=== PATIENT | male | born 1985 | race Caucasian/White ===

== ENCOUNTER 2016-05-29 08:10 | Emergency (ER) | payer OTHER ==
[2016-05-29 08:14] VITALS: RESP 16; TEMP 97.5
[2016-05-29] MEDS ORDERED: HYDROmorphONE/DILAUDID 1 MG/ML SYR IVP ONE (09:03)
[2016-05-29] MEDS ORDERED: KETOROLAC 15 MG/1 ML SDV IVP ONE (09:03)
[2016-05-29] MEDS ORDERED: DIAZEPAM 10 MG/2 ML SYR IVP ONE (09:03)
[2016-05-29] MEDS ORDERED: NS 1,000 ML IV ONE (09:03)
[2016-05-29] MEDS ORDERED: DEXAMETHASONE 10 MG/ML VIAL IVP ONE (09:06)
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
[2016-05-29 10:32] VITALS: BP 157/89; PULSE 50; O2SAT 97
== END 2016-05-29 10:32 | disposition home or self-care (01) ==
DX: M54.42 Lumbago with sciatica, left side (principal)
CPT/HCPCS: 96374; J1170; J1885

== ENCOUNTER 2018-02-18 17:25 | Inpatient (IN) | payer OTHER ==
--- NOTE | 2018-02-18 17:57 | EDPHY ---
HPI/HX/ROS/PE/MDM Narrative: CHIEF COMPLAINT: Infection in gluteal cleft HISTORY OF PRESENT ILLNESS: This patient is a 32 year old male complaining of a skin infection in his left gluteal cleft. He first noted a small bump in the area 1-2 months ago, but this has worsened in the past week. He went to urgent care this morning and was given cefazolin IM and oral Bactrim. He reports a provider there tried to do a needle aspiration for I&D, but there was no purulence expressed. He was instructed to come to ER if he was not better and now he feels he had gotten worse. He reports he became ill last night with chills, body aches, fever, headache. No history of diabetes, not immunocompromised, no recent steroid use. Patient did have a epidural injection performed 1 week ago without complications. No flu vaccine yet this year. No chest pain, shortness of breath, palpitations, vomiting, diarrhea, urinary complaints, lightheadedness. REVIEW OF SYSTEMS: A comprehensive 10 system review of systems is otherwise negative aside from elements mentioned in the history of present illness and medical decision making. PAST MEDICAL HISTORY: Transforaminal epidural injection at L4-L5 one week ago SOCIAL HISTORY: , at bedside. Nonsmoker. No illicit drug use, has never used IV drugs. VITAL SIGNS: Reviewed by me. Afebrile here. GENERAL: Well-developed, well-nourished, resting comfortably in no respiratory distress. HEENT: Atraumatic. Eyes: No icterus, no injection. Mouth: moist mucous membranes. No erythema or lesions. Neck: supple with no adenopathy. LUNGS: Clear to auscultation bilaterally, no wheezes, rhonchi or rales. CARDIAC: Regular rate and rhythm, no rubs, murmurs or gallops. ABDOMEN: Soft, nontender, nondistended, bowel sounds normal. BACK: No CVA tenderness. EXTREMITIES: No trauma. No edema. See skin exam. NEURO: Alert and oriented, grossly nonfocal. SKIN: Warm and dry. Left lower extremity: At the gluteal fold, the patient has a 6cm x 10cm firm, indurated area with a 20cm area of surrounding erythema extending down the posterior thigh. PSYCHIATRIC: Normal mentation, no agitation. Portions of this note were transcribed by a bilingual medical receptionist. I personally performed a history, physical exam, medical decision making, and confirmed accuracy of information the transcribed note. ED Course: 32 y/o male presents with cellulitis and abscess in the left gluteal fold. On exam, the patient has a 6cm x 10cm firm, indurated area at the gluteal fold with a 20cm area of surrounding erythema extending down the posterior thigh, warm to the touch. He endorses spreading erythema despite beginning oral antibiotics this morning. Plan to administer 1mg IV Dilaudid for pain relief. Plan for labs including CBC, chemistries, coag panel, bilirubin, lactic acid, blood cultures. 18:30 Procedure: Incision and Drainage abscess. The patient's abscess was located on the left buttock. Risks, benefits, alternatives discussed with the patient and consent obtained. The area was prepped and draped in sterile fashion. The patient received local anesthesia with 1% lidocaine with epinephrine. The abscess was incised with a #15 blade and a large quantity of purulent drainage was expressed. The wound was packed. The patient tolerated the procedure well. The procedure was performed by myself. Wound culture sent to the laboratory for evaluation. WBC elevated at 11,600. Lactic acid negative. Plan to admit patient for cellulitis, abscess, fever. Sepsis Evaluation Note: The patient presents to the ED with potential infection identified as abscess and cellulitis. The patient did not have evidence of sepsis. In the emergency department he had no fever, tachycardia, tachypnea, and his white blood cell count was less than 12,000. 19:09 Consulted with hospitalist service. Dr. Lopez accepts admission for cellulitis, abscess, fever. He will consult General surgery to evaluate if further I and D or operative intervention is necessary. MDM: Differential diagnoses for the patient's symptom complex was considered including but not limited to cellulitis, abscess, deep space abscess, perirectal abscess, MRSA, MSSA. - Data Points Laboratory Results: Laboratory Results 02/19/18 04:30 02/18/18 18:05 Medications Given: Discontinued Medications Hydromorphone HCl (Dilaudid) 1 mg IVP EDNOW ONE Stop: 02/18/18 18:28 Last Admin: 02/18/18 18:35 Dose: 1 mg Hydromorphone HCl (Dilaudid) 0.2 - 1 mg IVP Q4H PRN PRN Reason: breakthrough/pre-med for wound Stop: 02/28/18 21:22 Last Admin: 02/20/18 20:54 Dose: 0.5 mg Vancomycin/Sodium Chloride (Vancomycin 1 Gm (Premix)) 250 mls @ 250 mls/hr IV EDNOW ONE PRN Reason: Protocol Stop: 02/18/18 19:01 Last Admin: 02/18/18 18:34 Dose: 250 mls Sodium Chloride (Ns) 1,000 mls @ 0 mls/hr IV ONCE ONE; Wide Open PRN Reason: Protocol Stop: 02/18/18 18:27 Last Admin: 02/18/18 18:34 Dose: 1,000 mls Vancomycin HCl 1.25 gm/ Sodium (Chloride) 250 mls @ 166.667 mls/hr IV Q12H EVELYN Stop: 03/21/18 06:29 Last Admin: 02/20/18 08:12 Dose: 250 mls Cefazolin Sodium/Dextrose (Ancef 2 Gm) 100 mls @ 200 mls/hr IV Q8HRS EVELYN PRN Reason: Protocol Stop: 03/22/18 13:59 Last Admin: 02/21/18 13:03 Dose: 100 mls Oxycodone HCl (Oxycodone Ir) 5 - 10 mg PO Q3HRS PRN PRN Reason: Pain, Severe Able to Take PO Stop: 02/28/18 19:36 Last Admin: 02/21/18 10:49 Dose: 5 mg Senna/Docusate Sodium (Senokot-S) 1 - 2 tab PO BID EVELYN PRN Reason: Protocol Stop: 08/19/18 08:59 Last Admin: 02/21/18 07:53 Dose: 1 tab General Time Seen by Provider: 02/18/18 17:43 Initial Vital Signs: Initial Vital Signs Temperature (C) 37.1 C 02/18/18 17:37 Heart Rate 89 02/18/18 17:37 Respiratory Rate 16 02/18/18 17:37 Blood Pressure 110/78 02/18/18 17:37 O2 Sat (%) 96 02/18/18 17:37 O2 Delivery Mode Room Air Allergies/Adverse Reactions: No Known Allergies Allergy (Verified 10/03/13 22:51) Home Medications: Medication Instructions Recorded Ibuprofen [Advil] 600 mg PO BID PRN 02/18/18 Cephalexin [Keflex (*)] 500 mg PO QID #56 cap 02/21/18 oxyCODONE/APAP 5/325 [Percocet 1 - 2 tab PO Q8 PRN #20 tab 02/21/18 5/325 (*)] Departure - Departure Disposition: [facility] ([place], [place]) Inpatient Acute Clinical Impression: Left buttock abscess Cellulitis Qualifiers: Site of cellulitis: buttock Qualified Code(s): L03.317 - Cellulitis of buttock Fever Qualifiers: Fever type: unspecified Qualified Code(s): R50.9 - Fever, unspecified Condition: Fair Report Scribed for: Libertad Hennessy Report Scribed by: Meera Pardo Date of Report: 02/18/18 Time of Report: 20:05
[2018-02-18] MEDS ORDERED: VANCOMYCIN HCL/NORMAL SALINE 250 ML IV ONE (18:02)
[2018-02-18] MEDS ORDERED: HYDROmorphONE/DILAUDID 1 MG/ML INJ ONE (18:22)
[2018-02-18] MEDS ORDERED: NS 1,000 ML IV ONE (18:26)
[2018-02-18] MEDS ORDERED: HYDROmorphONE/DILAUDID 1 MG/ML INJ IVP ONE (18:27)
[2018-02-18 18:35] LABS: PLATELET COUNT 190 10^3/uL (150-400)
[2018-02-18 18:43] LABS: INR 1.07 (0.83-1.16); PROTIME(PATIENT) 14.1 SEC (12.0-15.0)
[2018-02-18] MEDS ORDERED: ONDANSETRON 4 MG/2 ML VIAL IVP PRN (19:37)
[2018-02-18] MEDS ORDERED: ACETAMINOPHEN 325 MG TAB PO PRN (19:37)
[2018-02-18] MEDS ORDERED: ONDANSETRON DISINTEGRATING 4 MG TAB PO PRN (19:37)
--- NOTE | 2018-02-18 21:14 | PDGENHP ---
History and Physical - Chief Complaint buttock/leg pain and redness - History of Present Illness 32yo generally healthy M presents with worsening pain on posterior aspect of upper left thigh. He has noticed a firmness over this area for numerous months but it never bothered him or became red. He noticed the area becoming more painful about 1.5 weeks ago and it has continued to progressively become more uncomfortable. He also noticed more redness. Last night, he developed a fever and chills so he decided to go to urgent care this AM. They attempted I&D but were unable to drain any fluid. He received a dose of cefazolin and was sent home with bactrim. The pain worsened and he noted the redness was spreading down the back of his thigh so came to ED. He reports have an epidural spinal injection at L4-5 1 week ago. He also does have a history of left hamstring repair in 2013. He denies any urinary or GI symptoms. In the ED, he underwent I&D with drainage of significant purulent material. The wound was packed. He is being admitted for IV antibiotics for cellulitis and abscess. Case discussed with ED physician Libertad Hennessy. History Information - Allergies/Home Medication List Allergies/Adverse Reactions: No Known Allergies Allergy (Verified 10/03/13 22:51) Home Medications: Ibuprofen [Advil] 600 mg PO BID PRN 02/18/18 [Last Taken 02/17/18] Sulfamethox/Tmp 800/160 mg [Bactrim Ds] 1 tab PO BID 02/18/18 [Last Taken 14:00] I have personally reviewed and updated: family history, medical history, social history, surgical history - Past Medical History Additional medical history: low back pain/degenerative disc disease, left hamstring injury - Surgical History Additional surgical history: microdiscectomy x2, epidural spinal injection, left hamstring repair - Family History Positive for: non-pertinent - Social History Smoking Status: Never smoked Alcohol Use: Rarely (socially) Drug Use: None Additional social history: Lives with . Works at [employer] in [employer] department Review of Systems Review of Systems: ROS: 10pt was reviewed & negative except for what was stated in HPI & below Physical Exam Physical Exam: Temp Pulse Resp BP Pulse Ox 37.1 C 68 16 134/80 H 93 02/18/18 20:44 02/18/18 20:44 02/18/18 20:44 02/18/18 20:44 02/18/18 20:44 Constitutional: no apparent distress, appears nourished, not in pain Eyes: PERRL, anicteric sclera, EOMI Ears, Nose, Mouth, Throat: moist mucous membranes, hearing normal, ears appear normal, no oral mucosal ulcers Cardiovascular: regular rate and rhythym, no murmur, rub, or gallop, No edema Respiratory: no respiratory distress, no rales or rhonchi, clear to auscultation Gastrointestinal: normoactive bowel sounds, soft, non-tender abdomen, no palpable masses Skin: erythema (on posterior left thigh extending from buttock down almost to knee), induration (upper posterior left thigh with area that is now packed), other (no scrotal erythema) Musculoskeletal: full muscle strength, no muscle tenderness, normal joint ROM, no joint effusions Neurologic: AAOx3 Psychiatric: interacting appropriately, not anxious, not encephalopathic, thought process linear Lab Data & Imaging Review 02/18/18 18:05 02/18/18 18:05 WBC 11.60 10^3/uL (3.80-9.50) H 02/18/18 18:05 RBC 4.66 10^6/uL (4.40-6.38) 02/18/18 18:05 Hgb 14.6 g/dL (13.7-17.5) 02/18/18 18:05 Hct 41.9 % (40.0-51.0) 02/18/18 18:05 MCV 89.9 fL (81.5-99.8) 02/18/18 18:05 MCH 31.3 pg (27.9-34.1) 02/18/18 18:05 MCHC 34.8 g/dL (32.4-36.7) 02/18/18 18:05 RDW 12.7 % (11.5-15.2) 02/18/18 18:05 Plt Count 190 10^3/uL (150-400) 02/18/18 18:05 MPV 11.3 fL (8.7-11.7) 02/18/18 18:05 Neut % (Auto) 73.1 % (39.3-74.2) 02/18/18 18:05 Lymph % (Auto) 16.3 % (15.0-45.0) 02/18/18 18:05 Faulkner % (Auto) 9.1 % (4.5-13.0) 02/18/18 18:05 Eos % (Auto) 0.9 % (0.6-7.6) 02/18/18 18:05 Baso % (Auto) 0.2 % (0.3-1.7) L 02/18/18 18:05 Nucleat RBC Rel Count 0.0 % (0.0-0.2) 02/18/18 18:05 Absolute Neuts (auto) 8.48 10^3/uL (1.70-6.50) H 02/18/18 18:05 Absolute Lymphs (auto) 1.89 10^3/uL (1.00-3.00) 02/18/18 18:05 Absolute Monos (auto) 1.06 10^3/uL (0.30-0.80) H 02/18/18 18:05 Absolute Eos (auto) 0.10 10^3/uL (0.03-0.40) 02/18/18 18:05 Absolute Basos (auto) 0.02 10^3/uL (0.02-0.10) 02/18/18 18:05 Absolute Nucleated RBC 0.00 10^3/uL (0-0.01) 02/18/18 18:05 Immature Gran % 0.4 % (0.0-1.1) 02/18/18 18:05 Immature Gran # 0.05 10^3/uL (0.00-0.10) 02/18/18 18:05 PT 14.1 SEC (12.0-15.0) 02/18/18 18:05 INR 1.07 (0.83-1.16) 02/18/18 18:05 APTT 29.8 SEC (23.0-38.0) 02/18/18 18:05 VBG Lactic Acid 1.0 mmol/L (0.7-2.1) 02/18/18 18:25 Sodium 138 mEq/L (135-145) 02/18/18 18:05 Potassium 4.1 mEq/L (3.3-5.0) 02/18/18 18:05 Chloride 100 mEq/L (97-110) 02/18/18 18:05 Carbon Dioxide 29 mEq/l (22-31) 02/18/18 18:05 Anion Gap 9 mEq/L (8-16) 02/18/18 18:05 BUN 18 mg/dL (7-23) 02/18/18 18:05 Creatinine 0.9 mg/dL (0.7-1.3) 02/18/18 18:05 Estimated GFR > 60 02/18/18 18:05 Glucose 95 mg/dL (70-100) 02/18/18 18:05 Calcium 9.2 mg/dL (8.5-10.4) 02/18/18 18:05 Total Bilirubin 0.9 mg/dL (0.1-1.4) 02/18/18 18:05 Assessment & Plan Assessment: 32yo generally healthy M presents with worsening pain and erythema on posterior aspect of upper left thigh found to have abscess and cellulitis. Plan: #Left posterior thigh abscess and cellulitis: S/p I&D in ED. Wound now packed. Suspect folliculitis or epidermoid cyst that has become infected and spread to surrounding skin/soft tissue. He is not septic. Will cover for MRSA. His clinical picture is not consistent with Adam's gangrene. Seems unlikely that recent epidural injection was portal of entry. - Vancomycin, trough goal 10-15 - Consult general surgery in AM - Wound care - Pain control Diet: regular VTE ppx: Code: full Dispo: Admit under observation for management of above with IV antibiotics.
[2018-02-18] MEDS ORDERED: HYDROmorphONE/DILAUDID 1 MG/ML INJ IVP PRN (21:23)
[2018-02-18] MEDS: oxyCODONE IR 5 MG TAB PO PRN (21:26)
[2018-02-19] MEDS: VANCOMYCIN 1.25 GM in NS 250 ML IV SCH ×2 (06:14→18:24)
[2018-02-19] MEDS: oxyCODONE IR 5 MG TAB PO PRN ×4 (06:18→21:55)
--- NOTE | 2018-02-19 10:44 | WOCRNPDOC ---
WOCRN Advanced Assessment Note - Skin Integrity Problem, Advanced Assess Right Gluteal Folds Surgical Wound/Incision Dressing Type: Packing, Tegaderm Film Exudate Amount: Moderate Exudate Characteristic(s): Serosanguinous Integumentary Issue Intervention: Dressing Changed, Dressing Initialed & Dated Gal Wound Tissue: Erythema (Has receeded from previously marked area but still erythematic to approx 8 cm gal wound), Indurated, Painful/Tender Site Measurement - Head-to-Toe Length X Width X Depth (cm): 0.1x2.4x3 Skin Integrity Problem Comment: I and D site. No purulence/tunneling noted. Painful to change; continue with premedication prior to dressing changes. Will need changes BID for a few days and then might be able to switch to daily changes. Wound care will follow up later this week. All questions answered. present for change. Small area of approx 2x2 cm erythema on left lumbar area marked and dated.
--- NOTE | 2018-02-19 10:44 | HOSPPROG ---
Hospitalist Progress Note Assessment/Plan: 32 yo m w recent chandrakant here w buttock abscess abscess: lance puga on vanc has been drained but still w sig erythema gen surgery to see hold ct for now await micro satellite lesion: not really tender, may just be from lying on bed marked, follow recent chandrakant: no neurologic sx proph: low risk, ambulation dispo: inpatient await micro, response to treatment Subjective: case d/w dr davies Objective: Vital Signs Temp Pulse Resp BP Pulse Ox 36.7 C 55 L 16 120/66 99 02/19/18 07:41 02/19/18 07:41 02/19/18 07:41 02/19/18 07:41 02/19/18 07:41 Laboratory Results 02/19/18 04:30 02/18/18 02/19/18 02/20/18 05:59 05:59 05:59 Intake Total 1870 Balance 1870 PT 14.1 SEC (12.0-15.0) 02/18/18 18:05 INR 1.07 (0.83-1.16) 02/18/18 18:05 - Physical Exam Constitutional: no apparent distress, appears nourished Eyes: PERRL, anicteric sclera Ears, Nose, Mouth, Throat: moist mucous membranes, hearing normal Cardiovascular: regular rate and rhythym, no murmur, rub, or gallop Respiratory: no respiratory distress, no rales or rhonchi Gastrointestinal: normoactive bowel sounds, soft, non-tender abdomen Genitourinary: no bladder fullness, No banks in urethra Skin: warm, normal color Musculoskeletal: other (L upper thigh w erythema and warmth and tenderness around incision site. wick in place. no fluctuance. small area redness around R SI joint. marked) ICD10 Worksheet Patient Problems: Problems Problem Status Onset Cellulitis Acute Fever Acute Left buttock abscess Acute
--- NOTE | 2018-02-19 11:46 | GCON ---
Consultation requested by Dr. Anurag Norton Marcio has had a fullness in his left posterior proximal midline thigh for some time. It has become more tender over the last 36 hours. He went to Urgent Care yesterday morning. He was started on Bactrim. He came to the ER last night. The cellulitis had increased. The wound was I&D'd and packed. It was repacked this morning. I was there just as the dressing changes were completed. The erythema is dramatically less than it was last evening. The Gram stain from last night shows gram-positive cocci in clusters. The patient is on vancomycin. I think he is doing well. His white count is unchanged at this point, but he is afebrile. His vital signs are stable. I recommend we use a heating pad on it for 45 minutes 4 times a day and isolation until we are sure that we are not dealing with MRSA. I think the current care plan is excellent. /[id number]/MODL MTDD
--- NOTE | 2018-02-19 12:52 | ASMTCASEMG ---
Living Arrangements What is your living Answers: With Spouse arrangement? Who do you live with? Type Of Residence What kind of residence do Answers: Apartment you live in? Discharge Plan Comments Coordination Status Comments Notes: Patient is a 32yo male who has been generally healthy but presents to [facility] ED with a buttock abscess, cellulitis, and fever. In the ED patient underwent I&D with drainage of significant purulent material. The wound was packed and he is being admitted for IV ABX. Patient will need a consult with general surgery, wound care, pain control and vancomycin, trough goal 10-15.PT has been ordered for the patient.D/C needs TBD. CM will follow. Date Signed: 02/19/2018 12:51 PM Electronically Signed By:Tanna Sood LCSW
--- NOTE | 2018-02-19 15:35 | PDMN ---
Medical Necessity Medical necessity: Change to inpt as of 02/19/18 @ 1450. Pt meets inpt criteria per MD order and MCG M-70, Cellulitis, 32 y/o admitted w/L posterior thigh abcess and cellulitis, s/p I&D in ER and wound packing, still w/significant erythema, surgery following, continue IV ABX's, wound cultures + for Staph Aureus, blood cultures pending. Anticipate>2MN for ongoing med nec eval/ treatment.
[2018-02-19] MEDS: HYDROmorphONE/DILAUDID 1 MG/ML INJ IVP PRN (21:04)
[2018-02-19] MEDS ORDERED: MAGNESIUM HYDROXIDE 30 ML UDCUP PO PRN (22:53)
[2018-02-19] MEDS ORDERED: BISACODYL 10 MG SUPP PR PRN (22:53)
[2018-02-19] MEDS ORDERED: LACTULOSE 20 GM/30 ML UDCUP PO PRN (22:53)
[2018-02-19] MEDS ORDERED: POLYETHYLENE GLYCOL 3350 17 GM PKT PO PRN (22:53)
[2018-02-20] MEDS: SENNOSIDES/DOCUSATE SODIUM TAB PO SCH ×2 (07:49→21:07)
[2018-02-20] MEDS: VANCOMYCIN 1.25 GM in NS 250 ML IV SCH (08:12)
[2018-02-20] MEDS: HYDROmorphONE/DILAUDID 1 MG/ML INJ IVP PRN ×2 (10:40→20:54)
--- NOTE | 2018-02-20 13:10 | HOSPPROG ---
Hospitalist Progress Note Assessment/Plan: # cellulitis/abscess s/p I&D, MSSA - still too high risk for PO abx - change to ancef IV Subjective: leg still painful Objective: Vital Signs Temp Pulse Resp BP Pulse Ox 36.4 C 55 L 16 123/72 H 94 02/20/18 07:21 02/20/18 07:21 02/20/18 07:21 02/20/18 07:21 02/20/18 07:21 Laboratory Results 02/20/18 10:08 02/19/18 02/20/18 02/21/18 05:59 05:59 05:59 Intake Total 1530 Balance 1530 PT 14.1 SEC (12.0-15.0) 02/18/18 18:05 INR 1.07 (0.83-1.16) 02/18/18 18:05 chart reviewed - Physical Exam Constitutional: no apparent distress, appears nourished Cardiovascular: regular rate and rhythym, no murmur, rub, or gallop, systolic murmur Respiratory: no respiratory distress, no rales or rhonchi, clear to auscultation Gastrointestinal: normoactive bowel sounds, soft, non-tender abdomen, no palpable masses Skin: other (L thigh with abscess s/p I&D; some surrounding erythema) ICD10 Worksheet Patient Problems: Problems Problem Status Onset Cellulitis Acute Left buttock abscess Acute Fever Acute
[2018-02-20] MEDS: ceFAZolin 2 GM/DEXTROSE 100 ML IV SCH ×2 (14:30→21:08)
--- NOTE | 2018-02-20 15:02 | SOAPPROG ---
SOAP Progress Note Assessment/Plan: Assessment/Plan: 32 yo with 4 month hx or posterior thigh mass/cyst. Cellulitis and signs of acute infection last 48 hrs. Initial assessment in urgent care with Bactrim Rx. Worsening cellulitis prompted ER visit and admit. Vanco started with I&D at bedside. MSSA on speciation Changed to Ancef WBC 11 yesterday (stable) AVSS Cellulitis improved Induration as expected Packing removed some (purulence) Agree with management Wash wound in shower Repack with iodoform today D/C on oral abx 24-48 hr if cellulitis continues to improve 02/20/18 14:58 Objective: Vital Signs Temp Pulse Resp BP Pulse Ox 36.4 C 55 L 16 123/72 H 94 02/20/18 07:21 02/20/18 07:21 02/20/18 07:21 02/20/18 07:21 02/20/18 07:21 Laboratory Results 02/20/18 10:08 02/19/18 02/20/18 02/21/18 05:59 05:59 05:59 Intake Total 1530 Balance 1530 PT 14.1 SEC (12.0-15.0) 02/18/18 18:05 INR 1.07 (0.83-1.16) 02/18/18 18:05 ICD10 Worksheet Patient Problems: Problems Problem Status Onset Cellulitis Acute Fever Acute Left buttock abscess Acute
[2018-02-20] MEDS ORDERED: VANCOMYCIN 1.5 GM in NS 250 ML IV SCH (18:30)
[2018-02-20] MEDS ORDERED: HYDROmorphONE/DILAUDID 2 MG/ML INJ IVP PRN (22:00)
[2018-02-21] MEDS: ceFAZolin 2 GM/DEXTROSE 100 ML IV SCH ×2 (05:34→13:03)
[2018-02-21] MEDS: SENNOSIDES/DOCUSATE SODIUM TAB PO SCH (07:53)
[2018-02-21 07:58] VITALS: BP 123/73
[2018-02-21] MEDS: oxyCODONE IR 5 MG TAB PO PRN (10:49)
--- NOTE | 2018-02-21 11:08 | GDS ---
ALL CONSULTATIONS: General Surgery, Dr. Pierson. ALL DIAGNOSES: Cellulitis and abscess status post incision and drainage growing methicillin-sensitiv e Staphylococcus aureus. HOSPITAL COURSE: A 32-year-old man who presented with significant left posterior leg pain. He had b een treated with Bactrim as an outpatient. Found to have an abscess as well as surrounding celluliti s. This was I and D'd in the emergency department. Cultures were growing MSSA. Initially treated w ith vancomycin transitioned to Ancef. He has had significant improvement in his erythema as well as pain. He has been seen by [facility] as well as Kenna with General Surgery who do not feel like additional I and D is necessary at this time. He is stable for discharge on oral antibiotics. Dr. Yesica ontiveros has offered to follow up with him in a week or 2 as an outpatient to assure good healing. I w ill transition him to Keflex; he has been given warning signs and side effects of antibiotics. His w marcelo plans to do his packing once a day for the meantime. BILLING: I spent more than 30 minutes on the day of discharge coordinating care. /[id number]/MODL
--- NOTE | 2018-02-21 12:40 | ASMTCMCOM ---
CM Note CM Note Notes: Pt is being discharged today. CM spoke to Dr. Whittington and SUSAN Lawrence regarding d/c POC. Meera from wound care filled out the prescription for wound care supplies and Dr. Whittington signed the orders. CM met w/ pt and he also signed the prescription. No other needs at this time. Pts will dress/pack the wound. CM available for changes. Plan: Independent Date Signed: 02/21/2018 12:39 PM Electronically Signed By:CINDY Pearson
== END 2018-02-21 14:08 | disposition home or self-care (01) | DRG 581 ==
LOC: F3E 20:32 → OBSVTOIN 02-19 14:50
PROVIDERS: ADMIT Internal Medicine; ATTEND Internal Medicine
PROC: 0J990ZZ Drainage of Buttock Subcutaneous Tissue and Fascia, Open Approach (ICD-10-PCS; principal; 2018-02-19)
DX: L02.31 Cutaneous abscess of buttock (principal); E86.9 Volume depletion, unspecified; L03.317 Cellulitis of buttock; B95.61 Methicillin susceptible Staphylococcus aureus infection as the cause of diseases classified elsewhere
CPT/HCPCS: 96374; G0378; J0690; J1170; J3370